=== PATIENT | male | born 1965 | race Caucasian/White ===

== ENCOUNTER 2018-08-30 16:27 | Emergency (ER) | payer OTHER ==
--- NOTE | 2018-08-30 16:32 | PDOC ---
Rapid Medical Evaluation Chief Complaint: Ear Problem Time Seen by Provider: 08/30/18 16:31 Medical Evaluation: 08/30/18 16:31 HPI: L ear pain x 2 days PE: Deferred ORDERS: Nothing Discharge Disposition - Diagnosis Left ear pain - Referrals - Patient Instructions - Post Discharge Activity
[2018-08-30 16:35] VITALS: BP 161/88; PULSE 75; TEMP 98.1; BMI 29.8
--- NOTE | 2018-08-30 17:12 | PDOC ---
History of Present Illness - General Chief Complaint: Ear Problem Stated Complaint: LT EAR PAIN Time Seen by Provider: 08/30/18 16:31 History Source: Patient Exam Limitations: Clinical Condition - History of Present Illness Initial Comments: 08/30/18 17:09 Patient with no significant past medical history present with complaint of three -day history of left ear pain which has been worsening. Denies fever, chills, headache, nausea or vomiting. Denies any other symptoms Timing/Duration: other (3 days) Past History - Past Medical History Allergies/Adverse Reactions: Allergies Allergy/AdvReac Type Severity Reaction Status Date / Time No Known Allergies Allergy Verified 08/30/18 16:33 Home Medications: Ambulatory Orders Amoxicillin/Potassium Clav [Augmentin 875-125 Tablet] 1 each PO BID 7 Days #14 tablet 08/30/18 Neomycin/Polymyxin B Sulf/Hc [Rkoypcwd-Kgxtkgmfy-Bn Ear Susp] 4 drop OT Q6H 5 Days #1 bottle 08/30/18 - Suicide/Smoking/Psychosocial Hx Smoking History: Unknown if ever smoked Review of Systems - Review of Systems Able to Perform ROS?: Yes Is the patient limited Maori proficient: No Constitutional: No: Chills, Fever HEENTM: Yes: Symptoms Reported, See HPI, Ear Pain (left ear). No: Eye Pain, Blurred Vision, Tearing, Recent change in vision, Double Vision, Cataracts, Ocular Prothesis, Ear Discharge, Nose Pain, Nose Congestion, Tinnitus, Nose Bleeding, Hearing Loss, Throat Pain, Throat Swelling, Mouth Pain, Dental Problems, Difficulty Swallowing, Mouth Swelling, Other Respiratory: No: Symptoms reported, See HPI, Cough, Orthopnea, Shortness of Breath, SOB with Exertion, SOB at Rest, Stridor, Wheezing, Productive cough, Hemoptysis, Other Cardiac (ROS): No: Symptoms Reported, See HPI, Chest Pain, Edema, Irregular Heart Rate, Lightheadedness, Palpitations, Syncope, Chest Tightness, Other ABD/GI: No: Nausea, Vomiting Neurological: Yes: See HPI. No: Symptoms reported, Headache, Dizziness All Other Systems: Reviewed and Negative *Physical Exam - Vital Signs Last Vital Signs Temp Pulse Resp BP Pulse Ox 98.1 F 75 16 161/88 99 08/30/18 16:33 08/30/18 16:33 08/30/18 16:33 08/30/18 16:33 08/30/18 16:33 - Physical Exam Comments: 08/30/18 17:07 GENERAL: Well developed, well nourished. Awake and alert. No acute distress. HEENT: Moderate swelling in left ear canal with mild erythema. Normal right ear canal. Tympanic membrane could not be visualized in left ear canal. Normal tympanic membrane right ear canal. Normocephalic, atraumatic. PERRLA, EOMI. No conjunctival pallor. Sclera are non-icteric. Moist mucous membranes. Oropharynx is clear. NECK: Supple. Full ROM. CARDIOVASCULAR: Regular rate and rhythm. No murmurs, rubs, or gallops. Distal pulses are 2+ and symmetric. PULMONARY: No evidence of respiratory distress. Lungs clear to auscultation bilaterally. No wheezing, rales or rhonchi. ABDOMINAL: Soft. Non-tender. Non-distended. No rebound or guarding. No organomegaly. Normoactive bowel sounds. MUSCULOSKELETAL Normal range of motion at all joints. SKIN: Warm and dry. Normal capillary refill. No rashes. NEUROLOGICAL: Alert, awake, appropriate. Gait is normal without ataxia. PSYCHIATRIC: Cooperative. Good eye contact. Appropriate mood General Appearance: Yes: Nourished, Appropriately Dressed. No: Apparent Distress Medical Decision Making - Medical Decision Making 08/30/18 17:09 Patient with no significant past medical history present with complaint of three -day history of left ear pain which has been worsening. Denies fever, chills, headache, nausea or vomiting. Denies any other symptoms Exam significant for moderate swelling with erythema in left ear canal with tympanic membrane not able to be visualize. Right ear canal normal. Patient symptoms likely otitis externa possibly otitis media. Patient be discharge on neomycin with polymycin ear drops and Augmentin enteritis with ENT follow-up. Patient afebrile is stable for discharge *DC/Admit/Observation/Transfer Diagnosis at time of Disposition: Left ear pain Otitis externa Qualifiers: Otitis externa type: unspecified type Chronicity: acute Laterality: left Qualified Code(s): H60.502 - Unspecified acute noninfective otitis externa, left ear - Discharge Dispostion Disposition: HOME Condition at time of disposition: Stable Decision to Admit order: No - Prescriptions Prescriptions: Amoxicillin/Potassium Clav [Augmentin 875-125 Tablet] 1 each PO BID 7 Days #14 tablet Neomycin/Polymyxin B Sulf/Hc [Fyoxatgm-Gdxfrirnr-Oe Ear Susp] 4 drop OT Q6H 5 Days #1 bottle - Referrals Referrals: Chiki Anand MD [Staff Physician] - - Patient Instructions Printed Discharge Instructions: Middle Ear Infection Additional Instructions: Take medications as prescribed. Follow-up referred ENT if no improvement in 3 days. Take Motrin as needed for pain - Post Discharge Activity
== END 2018-08-30 17:15 | disposition home or self-care (01) ==
LOC: JERFT 16:27
DX: H60.502 Unspecified acute noninfective otitis externa, left ear (principal)
CPT/HCPCS: 99281-25

== ENCOUNTER 2018-08-31 19:29 | Emergency (ER) | payer OTHER ==
[2018-08-31 19:57] VITALS: BP 132/93; PULSE 77; TEMP 98.8; BMI 29.8
--- NOTE | 2018-08-31 20:07 | PDOC ---
History of Present Illness - General Chief Complaint: Ear Problem Stated Complaint: LT.EAR PAIN Time Seen by Provider: 08/31/18 19:59 - History of Present Illness Initial Comments: 08/31/18 20:05 52-year-old male without comorbidities presents for evaluation of left ear pain. Seen yesterday in the emergency room given eardrops for otitis externa as well as Augmentin by mouth he presents for worsening symptoms. Now he complains of left-sided facial pain and swelling without systemic symptoms. Past History - Past Medical History Allergies/Adverse Reactions: Allergies Allergy/AdvReac Type Severity Reaction Status Date / Time No Known Allergies Allergy Verified 08/31/18 19:56 Home Medications: Ambulatory Orders Amoxicillin/Potassium Clav [Augmentin 875-125 Tablet] 1 each PO BID 7 Days #14 tablet 08/30/18 Neomycin/Polymyxin B Sulf/Hc [Xipjsuot-Vbrdjqfto-Tp Ear Susp] 4 drop OT Q6H 5 Days #1 bottle 08/30/18 COPD: No Diabetes: Yes - Suicide/Smoking/Psychosocial Hx Smoking History: Former smoker Have you smoked in the past 12 months: No Information on smoking cessation initiated: No Hx Alcohol Use: No Drug/Substance Use Hx: No Review of Systems - Review of Systems Constitutional: No: Fever HEENTM: Yes: See HPI, Ear Pain *Physical Exam - Vital Signs Last Vital Signs Temp Pulse Resp BP Pulse Ox 98.8 F 77 18 132/93 100 08/31/18 19:54 08/31/18 19:54 08/31/18 19:54 08/31/18 19:54 08/31/18 19:54 - Physical Exam Comments: 08/31/18 20:06 Purulent drainage from the left ear. Left-sided facial swelling with tenderness and warmth. Left-sided anterior cervical adenopathy. Medical Decision Making - Medical Decision Making 08/31/18 20:06 Elbow line and labs in as well as a CAT scan of the head and neck to rule out any potential abscess. I will transfer the patient to the main emergency room. *DC/Admit/Observation/Transfer Diagnosis at time of Disposition: Otitis externa, Left ear pain - Referrals - Patient Instructions - Post Discharge Activity
--- NOTE | 2018-08-31 20:22 | PDOC ---
*Physical Exam - Vital Signs Last Vital Signs Temp Pulse Resp BP Pulse Ox 98.8 F 77 18 132/93 100 08/31/18 19:54 08/31/18 19:54 08/31/18 19:54 08/31/18 19:54 08/31/18 19:54 - Physical Exam Comments: 08/31/18 20:22 Sign-out received from fast track provider Brielle. . Pt interviewed and examined. Ancillary studies reviewed/ 08/31/18 20:52 CHIEF COMPLAINT: ear pain HISTORY OF PRESENT ILLNESS: 52 yo M presents to ED with worsening ear pain since yesterday. Patient was seen in this ED yesterday for left ear pain and prescribed Augmentin and corticosporin ear drops but returns today with worsening pain and swelling. Patient denies fever, chills, vomiting, diarrhea. No recent travel or sick contacts. PAST MEDICAL HISTORY: Denies past medical history FAMILY HISTORY: Denies SOCIAL HISTORY: Denies tobacco, alcohol, illicit drug use. SURGICAL HISTORY: Denies ALLERGIES: No known drug allergies REVIEW OF SYSTEMS General/Constitutional: Denies fever or chills. Denies weakness, weight change. HEENT: Ear pain x 4 days .Denies change in vision. Denies ear pain or discharge. Denies sore throat. Cardiovascular: Denies chest pain or shortness of breath. Respiratory: Denies cough, wheezing, or hemoptysis. Gastrointestinal: Denies nausea, vomiting, diarrhea or constipation. Denies rectal bleeding. Genitourinary: Denies dysuria, frequency, or change in urination. Musculoskeletal: Denies joint or muscle swelling or pain. Denies neck or back pain. Skin and breasts: Denies rash or easy bruising. Neurologic: Denies headache, vertigo, loss of consciousness, or loss of sensation. PHYSICAL EXAM General Appearance: Well-appearing, appropriately dressed. No apparent distress , no intoxication. HEENT: Marked swelling to left auditory canal, unable to visualize TM. Tenderness to left mastoid and tragus. EOMI, PERRLA, normal ENT inspection, normal voice, TMs normal, pharynx normal. No conjunctival pallor. No photophobia, scleral icterus. Neck: Supple. Trachea midline. No tenderness, rigidity, carotid bruit, stridor , lymphadenopathy, or thyromegaly. Respiratory/Chest: Lungs CTAB. No shortness of breath, chest tenderness, respiratory distress, accessory muscle use. No crackles, rales, rhonchi, stridor , wheezing, dullness Cardiovascular: RRR. S1, S2. No JVD, murmur, bradycardia, tachycardia. Vascular Pulses: Dorsalis-Pedis (R): 2+, Dorsalis-Pedis (L): 2+ Gastrointestinal/Abdominal: Normal bowel sounds. Abdomen soft, non-distended. No tenderness or rebound tenderness. No organomegaly, pulsatile mass, guarding , hernia, hepatomegaly, splenomegaly. Lymphatic: No adenopathy, tenderness. Musculoskeletal/Extremities: Normal inspection. FROM of all extremities, normal capillary refill. Pelvis Stable. No CVA tenderness. No tenderness to extremities, pedal edema, swelling, erythema or deformity. Integumentary: Appropriate color, dry, warm. No cyanosis, erythema, jaundice or rash Neurologic: obedience trainer II-XII intact. Fully oriented, alert. Appropriate mood/affect. Motor strength 5/5. No appreciable EOM palsy, facial droop or sensory deficit. ED Treatment Course - LABORATORY CBC & Chemistry Diagram: 08/31/18 20:10 08/31/18 20:10 Medical Decision Making - Medical Decision Making 08/31/18 23:19 52 yo M presents to ED with worsening ear pain since yesterday. CT negative for mastoidits. Patient has only been on abx for 24 hours. Discussed with patient option to admit for IV antibiotics, patient refuses and state he wants to try continuing the medication prescribed and watch and wait. Will change corticosporin to ciprodex. Advised patient to return to ED if symptoms do not improve after 48 hours or if symptoms worsen. Patient verbalized understanding and agrees to plan. *DC/Admit/Observation/Transfer Diagnosis at time of Disposition: Left ear pain Otitis externa Qualifiers: Otitis externa type: unspecified type Chronicity: acute Laterality: left Qualified Code(s): H60.502 - Unspecified acute noninfective otitis externa, left ear - Discharge Dispostion Disposition: HOME Condition at time of disposition: Stable Decision to Admit order: No - Prescriptions Prescriptions: Amoxicillin/Potassium Clav [Augmentin 875-125 Tablet] 1 each PO BID #4 tablet Ciprofloxacin HCl/Dexameth [Ciprodex Otic Suspension] 4 drop BID #1 bottle Ibuprofen 800 mg PO QID #20 tablet Ibuprofen 800 mg PO QID #20 tablet - Referrals Referrals: Moody Henriquez MD [Staff Physician] - - Patient Instructions Printed Discharge Instructions: DI for Otitis Externa - Post Discharge Activity
[2018-08-31 20:27] LABS: BASO % 0.6 % (0-2.0); HEMATOCRIT 42.6 % (35.4-49); HEMOGLOBIN 14.9 GM/dL (11.7-16.9); LYMPH % 31.6 % (8-40); MCH 35.4 pg (25.7-33.7); MCHC 34.9 g/dl (32.0-35.9); MEAN CELL VOLUME 101.4 fl (80-96); MEAN PLT VOLUME 8.1 fl (7.5-11.1); MONO % 11.5 % (3.8-10.2); NEUT % 51.3 % (42.8-82.8); PLATELET COUNT 278 K/MM3 (134-434); RDW 12.4 % (11.9-15.9); WHITE BLOOD COUNT 5.6 K/mm3 (4.0-10.0)
[2018-08-31] MEDS ORDERED: KETOROLAC TROMETHAMINE 15 MG/ML VIAL IVPUSH ONE (20:34)
[2018-08-31] MEDS ORDERED: KETOROLAC TROMETHAMINE 15 MG/ML VIAL ONE (20:40)
[2018-08-31 20:46] LABS: ALBUMIN 4.2 g/dl (3.4-5.0); BILIRUBIN,TOTAL 1.4 mg/dL (0.2-1); BLOOD UREA NITROGEN 13.8 mg/dL (7-18); CREATININE 0.9 mg/dL (0.55-1.3); POTASSIUM 4.3 mmol/L (3.5-5.1)
== END 2018-08-31 21:36 | disposition home or self-care (01) ==
LOC: JERFT 19:29 → JER 19:29
PROC: 3E0333Z Introduction of Anti-inflammatory into Peripheral Vein, Percutaneous Approach (ICD-10-PCS; principal; 2018-08-31)
DX: H92.02 Otalgia, left ear (principal); H60.92 Unspecified otitis externa, left ear
CPT/HCPCS: 36415; 70490-TC; 80053; 85025; 96374; 99283-25